=== PATIENT | female | born 1980 | race Two or more races ===

== ENCOUNTER 2024-10-15 08:30 | Outpatient (RCR) | payer MEDICAID, SELFPAY ==
--- NOTE | 2024-10-08 09:07 | PTNOTE_ITS ---
PT OP Initial Eval Patient Information Outpatient Physical Therapy Treatment Date: 10/08/24 Visit Reasons: Pain in RT arm Medical Diagnosis: M79.610 Treatment Dx #1: R UE pain Start of Care: 10/08/24 Date of Onset: 1 yr ago Smoking Status Smoking Status: Never smoker Initial Assessment Subjective: Pt is 43 yr old grenadian speaking female who reports R UE pain x1 yr. Increased pain with HH chores and lifting things, hair care and reaching OH with R UE. She is not working now and hasn't worked since this started. PMH: none reported Imaging: none of the R UE Pt goal: less R UE pain Objective: R shoulder AROM: FF: full Abduction: full HBH: full TTP: levator scap moderate, A/C joint and deltoid minimum C/S AROM: L rotation provokes pain in R posterior shoulder Assessment: Pt presents with pain in R UT that is relieved with stretching levator scapulae mm. Pt requires skilled therapy to meet goals and has fair rehab potential. Short Term and Senior Living Goals 1. Ind with HEP 2. Decreased TTP of R levator scap mm from mod to min 3. Pt will do hair care x5' without R UE pain 4. Pt will tolerate HH chores x30 mins without R UE pain Treatment Plan ?1. Manual therapy ? 2. Therex ? 3. Modalities as indicated, moist heat, ice, estim Frequency and Duration: 1-2x a week for 8 Rx sessions plus the eval Certification Dates: 10/08/24 to 01/07/25 Procedure Charges OP PT Eval Mod Complex 30 minutes: Yes
--- NOTE | 2024-10-15 10:27 | PT.ODAYNRPT ---
PT Outpatient Daily Note OP Daily Note Outpatient Physical Therapy Treatment Date: 10/15/24 Visit Reasons: Pain in RT arm Subjective: Same as time of evaluation Objective: See F/S for therex MT: STM R UT x7' Assessment: Pain in R UT that is relieved with stretching levator scapulae mm. She tends to elevate the shoulder Plan: Continue per POC Length of Time (minutes) of Treatment: 30 Minutes Procedure Charges Therapeutic Exercise 30 minutes: Yes
== END 2024-11-03 23:59 | disposition home or self-care (01) ==
LOC: CPTX 08:30
PROVIDERS: PCP Internal Medicine Rheumatology; Referring Provider Internal Medicine Rheumatology; Visit Provider Internal Medicine Rheumatology
DX: M79.601 Pain in right arm (principal)
CPT/HCPCS: 97110; 97162

== ENCOUNTER → 2024-11-24 | Outpatient (CLI) | payer MEDICAID, SELFPAY ==
--- NOTE | 2024-11-24 15:39 | XR_ITS ---
Examination: Wrist, right 3 views Technique: Wrist AP, oblique, lateral 3 views Date and time of exam: November 24, 2024 1543 hrs. Indications: Right wrist pain beginning 3 days ago. Findings: Mild osteoarthritis radiocarpal, navicular trapezium, first carpometacarpal joints. No fractures or avascular necrosis Impression: Mild osteoarthritis
--- NOTE | 2024-11-24 15:40 | XR_ITS ---
Examination: Cervical spine 7 views Technique: AP, lateral, lateral standing flexion, lateral standing extension, AP odontoid, TOMLINSON, SAMI 7 views Exam date and time: November 24, 2024 1545 hrs. Indications: Neck pain beginning one year ago. Findings: Satisfactory alignment cervical bodies with adequate range of motion between flexion and extension. No cervical fracture or significant cervical disc narrowing The odontoid is intact Impression: No cervical fracture or arthritic change
== END | disposition home or self-care (01) ==
LOC: CDIM 15:35
PROVIDERS: Referring Provider Physician Assistant; Visit Provider Physician Assistant
DX: M54.2 Cervicalgia (principal); M19.031 Primary osteoarthritis, right wrist
CPT/HCPCS: 72052; 73110

== ENCOUNTER 2024-12-03 09:30 | Outpatient (RCR) | payer MEDICAID, SELFPAY ==
--- NOTE | 2024-11-06 13:35 | PT.ODAYNRPT ---
PT Outpatient Daily Note OP Daily Note Outpatient Physical Therapy Treatment Date: 11/06/24 Visit Reasons: Pain in Right Arm Subjective: Continued pain in R upper trap Objective: See F/S for therex MT: STM R UT x7' Assessment: Pain in R UT that is relieved with stretching levator scapulae mm. She tends to elevate the shoulder. Improved cervical retraction after repetition. Plan: Continue per POC Length of Time (minutes) of Treatment: 30 Minutes Procedure Charges Therapeutic Exercise 30 minutes: Yes
--- NOTE | 2024-11-13 09:10 | PT.ODAYNRPT ---
PT Outpatient Daily Note OP Daily Note Outpatient Physical Therapy Treatment Date: 11/13/24 Visit Reasons: Pain in Right Arm Subjective: Pt reports no changes with symptoms, continues to have pain on R UE and weakness in hand. Objective: Please see flow sheet for ther ex list. Assessment: Pt instructed on thoracic extension, pt able to replicate with good technique. Plan: Continue with POC, work on cervical retraction. Length of Time (minutes) of Treatment: 30 Minutes Procedure Charges Therapeutic Exercise 30 minutes: Yes
--- NOTE | 2024-11-20 09:54 | PT.ODAYNRPT ---
PT Outpatient Daily Note OP Daily Note Outpatient Physical Therapy Treatment Date: 11/20/24 Visit Reasons: Pain in Right Arm Subjective: Pt continues to have pain on R UE and weakness in hand. Objective: See f/S for therex MT: STM R UT x5' Assessment: Fwd head and shoulder posture likely contributing to ssx. She has difficulty with cervical retraction. Plan: Continue with POC Length of Time (minutes) of Treatment: 30 Minutes Procedure Charges Therapeutic Exercise 30 minutes: Yes
--- NOTE | 2024-11-26 10:03 | PT.ODAYNRPT ---
PT Outpatient Daily Note OP Daily Note Outpatient Physical Therapy Treatment Date: 11/26/24 Visit Reasons: Pain in Right Arm Subjective: Pt reports progress with neck symptoms. Objective: Please see flow sheet for ther ex list. Assessment: Progression of interventions completed with muscle fatigue but no pain to report. Plan: Continue with pOC. Length of Time (minutes) of Treatment: 30 Minutes Procedure Charges Therapeutic Exercise 30 minutes: Yes
--- NOTE | 2024-12-03 10:25 | PT.ODAYNRPT ---
PT Outpatient Daily Note OP Daily Note Outpatient Physical Therapy Treatment Date: 12/03/24 Visit Reasons: Pain in Right Arm Subjective: Pt reports neck is doing better since starting PT. Objective: Please see flow sheet for ther ex list. Assessment: Progression of intervention tolerated well. Plan: Continue with pOC. Length of Time (minutes) of Treatment: 30 Minutes Procedure Charges Therapeutic Exercise 30 minutes: Yes
== END 2024-12-03 23:59 | disposition home or self-care (01) ==
LOC: CPTX 09:30
PROVIDERS: PCP Internal Medicine Rheumatology; Referring Provider Internal Medicine Rheumatology; Visit Provider Internal Medicine Rheumatology
DX: M79.601 Pain in right arm (principal)
CPT/HCPCS: 97110

== ENCOUNTER → 2024-12-09 | Outpatient (CLI) | payer MEDICAID, SELFPAY ==
--- NOTE | 2024-12-09 08:15 | XR_ITS ---
Examination: Screening digital mammography, bilateral Computer aided detection 3-D breast Tomosynthesis, bilateral Date and time of exam: December 09, 2024 0813 hours Compared to mammograms dating to December 28, 2021 Indication: Screening Technique: Nonmagnified MLO, CC views of the breasts to been obtained, reconstructed from 3-D Tomosynthesis images. R2 computer aided detection program utilized for evaluation of suspicious masses and/or abnormal calcifications. 3-D Tomosynthesis images obtained. Findings: Scattered areas of fibroglandular density. Benign calcifications. No interval suspicious masses Impression: BI-RADS category II: Benign Findings. Recommend 1 year follow-up mammogram.
== END | disposition home or self-care (01) ==
LOC: CDIM 07:47
PROVIDERS: Referring Provider Registered Nurse Community Health; Visit Provider Registered Nurse Community Health
DX: Z12.31 Encounter for screening mammogram for malignant neoplasm of breast (principal); R92.323 Mammographic fibroglandular density, bilateral breasts; R92.1 Mammographic calcification found on diagnostic imaging of breast
CPT/HCPCS: 77063; 77067

== ENCOUNTER 2024-12-17 10:30 | Outpatient (RCR) | payer MEDICAID, SELFPAY ==
--- NOTE | 2024-12-10 11:11 | PT.ODAYNRPT ---
PT Outpatient Daily Note OP Daily Note Outpatient Physical Therapy Treatment Date: 12/17/24 Visit Reasons: pain right arm Subjective: Pt reports neck and upper trap area have been feeling better since starting PT. Objective: Please see flow sheet for ther ex list. Assessment: Pt presents in clinic with decrease c/o muscle fatigue and no pain to report with interventions. Plan: Assess for Note. Length of Time (minutes) of Treatment: 30 Minutes Procedure Charges Therapeutic Exercise 30 minutes: Yes
--- NOTE | 2024-12-17 17:33 | PT.ODS1RPT ---
PT OP Progress/Discharge Note Date of Service: 12/17/24 Progress Note/DC Note Progress Note/Discharge Note: DC Note Patient Information Visit Reasons: pain right arm Service Continue Service or Discharge: Discharge Discharge Date: 12/17/24 Status Subjective: Pt reports less pain in the R UT since starting therapy and that she can do hair care x5' without pain and is doing HH chores for more than 30 mins with min pain. Objective: R shoulder AROM: FF: full Abduction: full TTP: min of R UT Assessment: Pt has attended the evaluation and 03/13 Rx sessions with good progress to meet all therapy goals. Pt has less TTP of R levator scap mm and is independent with HEP. Pt can do hair care x5' and HH chores x30 mins without R UE pain to meet those goals. Thank you for your referrals. Plan: D/C with HEP. Procedure Charges Therapeutic Exercise 30 minutes: Yes
== END 2025-01-03 23:59 | disposition home or self-care (01) ==
LOC: CPTX 10:30
PROVIDERS: PCP Internal Medicine Rheumatology; Referring Provider Internal Medicine Rheumatology; Visit Provider Internal Medicine Rheumatology
DX: M79.601 Pain in right arm (principal)
CPT/HCPCS: 97110